=== PATIENT | female | born 1965 | race Caucasian/White ===

== ENCOUNTER → 2018-12-24 | Outpatient (CLI) | payer BC ==
--- NOTE | 2018-12-24 09:25 | XR ---
EXAMINATION TYPE: XR lumbar spine 2 or 3V DATE OF EXAM: 12/24/2018 CLINICAL HISTORY: Chronic low back pain. Myalgia. Generalized muscle weakness. TECHNIQUE: Frontal and lateral images of the lumbar spine are obtained. COMPARISON: None. FINDINGS: There are 5 lumbar type vertebral bodies identified. The lumbar spine shows slight scolio tic curvature without evidence of acute fracture or dislocation. Vertebral body heights and disk spac e heights are within normal limits. Numerous clips and sutures epigastric region are noted. IMPRESSION: As above.
== END | disposition home or self-care (01) ==
LOC: RADXRYALE 09:10
PROVIDERS: ATTEND Family Medicine
DX: M41.86 Other forms of scoliosis, lumbar region (principal); M79.18 Myalgia, other site
CPT/HCPCS: 72100

== ENCOUNTER → 2019-03-07 | Day surgery (SDC) | payer BC ==
[2019-03-05 12:18] VITALS: BMI 37.9
[~2019-03-07] MED LIST: LACTATED RINGERS 1,000 ML IV SCH; LIDOCAINE 1% 20 ML VIAL (10MG/ML) FOR IV START INTRADERMA PRN; LIDOCAINE 1% INJ 10MG/ML (20 ML MDV) ONE; MIDAZOLAM 2 MG/2 ML VIAL ONE; ONDANSETRON 4 MG/2 ML VIAL IVP ONE; PROPOFOL 10 MG/ML 20 ML VIAL IV ONE
[2019-03-07 07:44] VITALS: TEMP 98.1
--- NOTE | 2019-03-07 08:31 | P.PCN ---
Date of Procedure: 03/07/19 Procedure(s) Performed: BRIEF HISTORY: Patient is a 53-year-old pleasant female, scheduled for an elective colonoscopy as a part of screening for colorectal neoplasia. PROCEDURE PERFORMED: Colonoscopy with snare polypectomy. PREOPERATIVE DIAGNOSIS: Screening for colon cancer. IV sedation per Anesthesia. PROCEDURE: After informed consent was obtained, the patient, was brought into the endoscopy unit. IV sedation was administered by Anesthesia under continuous monitoring. Digital rectal examination was normal. Initially the Olympus CF-160 flexible video colonoscope was then inserted in the rectum, gradually advanced into the cecum without any difficulty. Careful examination was performed as the scope was gradually being withdrawn. Ileocecal valve and the appendiceal orifice were visualized and appeared normal. Prep was excellent. Mucosa of the cecum, ascending colon, transverse colon, descending colon, sigmoid colon, and rectum appeared normal. There was a 1 cm broad-based a sigmoid polyp that was removed by snare polypectomy. Retroflexion was performed in the rectum and no lesions were seen. The patient tolerated the procedure well. IMPRESSION: 1 cm broad-based rectosigmoid polyp status post polypectomy Rest of the colon appeared normal. RECOMMENDATIONS: Findings of this examination were discussed with the patient as well as a family. She was advised to follow with the biopsy results. If the biopsy shows an adenoma she can have a repeat colonoscopy in 3 years..
[2019-03-07 08:33] VITALS: BP 89/56; RESP 17
[2019-03-07 08:37] VITALS: PULSE 62
== END | disposition home or self-care (01) ==
LOC: ORWHC2ENDO 07:22
PROVIDERS: ATTEND Internal Medicine Gastroenterology
DX: Z12.11 Encounter for screening for malignant neoplasm of colon (principal); D12.7 Benign neoplasm of rectosigmoid junction; E07.9 Disorder of thyroid, unspecified; F41.9 Anxiety disorder, unspecified; F32.9 Major depressive disorder, single episode, unspecified; F90.9 Attention-deficit hyperactivity disorder, unspecified type; Z79.890 Hormone replacement therapy; Z79.2 Long term (current) use of antibiotics; Z79.891 Long term (current) use of opiate analgesic; Z79.899 Other long term (current) drug therapy; Z79.82 Long term (current) use of aspirin; Z98.84 Bariatric surgery status
CPT/HCPCS: 88305; 45385; J2250; J2405; J2001; J2704

== ENCOUNTER → 2019-05-26 | Outpatient (CLI) | payer BC ==
--- NOTE | 2019-05-26 12:03 | XR ---
EXAMINATION TYPE: XR chest 2V DATE OF EXAM: 05/26/2019 COMPARISON: NONE HISTORY: Shortness of breath TECHNIQUE: Frontal and lateral views of the chest are obtained. FINDINGS: Scattered senescent parenchymal changes noted. No evidence for infiltrate. No evidence for atelectasis. Heart size is stable. Mediastinal structures are stable and grossly unremarkable. No evidence for hilar prominence. Degenerative changes dorsal spine. IMPRESSION: 1. No evidence for acute pulmonary disease.
== END | disposition home or self-care (01) ==
LOC: RADXRYALE 11:47
PROVIDERS: ATTEND Family Medicine
DX: R06.02 Shortness of breath (principal)
CPT/HCPCS: 71046

== ENCOUNTER 2020-04-15 06:42 | Day surgery (SDC) | payer OTHER ==
[2020-04-09 16:29] VITALS: BMI 39.2
[~2020-04-15 06:42] MED LIST changes: +ALPRAZolam 0.25 MG TAB PO PRN; +ALPRAZolam 0.5 MG TAB PO PRN; -LACTATED RINGERS 1,000 ML IV SCH; -LIDOCAINE 1% 20 ML VIAL (10MG/ML) FOR IV START INTRADERMA PRN; -LIDOCAINE 1% INJ 10MG/ML (20 ML MDV) ONE; -MIDAZOLAM 2 MG/2 ML VIAL ONE; +NITROGLYCERIN SL TABS 0.4 MG TAB SUBLINGUAL PRN; -ONDANSETRON 4 MG/2 ML VIAL IVP ONE; -PROPOFOL 10 MG/ML 20 ML VIAL IV ONE; +SODIUM CHLORIDE 0.9% 1,000 ML in EMPTY BAG 1 BAG IV ONE
[2020-04-15] MEDS ORDERED: SODIUM CHLORIDE 0.9% 1,000 ML IV ONE (06:58)
[2020-04-15] MEDS ORDERED: ATORVASTATIN 80 MG TAB PO ONE (07:00)
[2020-04-15] MEDS ORDERED: ASPIRIN 325 MG TAB PO ONE (07:00)
[2020-04-15 07:21] VITALS: RESP 16; TEMP 98.1
[2020-04-15] MEDS ORDERED: MIDAZOLAM 2 MG/2 ML VIAL IV ONE (07:32)
[2020-04-15] MEDS ORDERED: fentaNYL (PF) 50 MCG/ML 2 ML AMP IV ONE (07:32)
[2020-04-15] MEDS ORDERED: LIDOCAINE 1% INJ 10MG/ML (20 ML MDV) ONE (07:32)
[2020-04-15] MEDS ORDERED: fentaNYL (PF) 50 MCG/ML 2 ML AMP ONE (07:33)
[2020-04-15] MEDS ORDERED: LIDOCAINE 1% INJ 10MG/ML (20 ML MDV) SQ ONE (07:38)
[2020-04-15] MEDS ORDERED: IOPAMIDOL-370 125ML BTL INJ ONE (07:47)
[2020-04-15] MEDS ORDERED: RX INFO: IV CONTRAST WAS GIVEN 1 EACH MISC MISCELLANE PRN (07:55)
[2020-04-15] MEDS ORDERED: SODIUM CHLORIDE 0.9% 1,000 ML IV SCH (08:00)
--- NOTE | 2020-04-15 16:03 | CC ---
CARDIAC CATHETERIZATION REPORT INDICATION: Chest pain and shortness of breath, exertional fatigue with abnormal stress test. PROCEDURE NOTE: After obtaining informed consent, left heart catheterization and coronary angiogram were performed via the right femoral artery using standard Wade catheters. The patient tolerated the procedure well without any obvious immediate complication. Femoral angiogram was performed and Angio-Seal was deployed for hemostasis. The patient received moderate conscious sedation. Total sedation time was 13 minutes. FINDINGS: HEMODYNAMICS: Left ventricular end-diastolic pressure is 18 mm. There is no significant gradient across the aortic valve. LEFT VENTRICULOGRAM: Left ventriculogram was not performed. ANGIOGRAPHIC DATA LEFT MAIN CORONARY ARTERY: Left main coronary artery is a normal-sized vessel and is free of stenosis. It divides into left anterior descending coronary artery and circumflex coronary artery. LAD and its branches, circumflex coronary artery and its branches are free of significant stenosis. RIGHT CORONARY ARTERY: Right coronary artery is a dominant vessel that is free of significant stenosis. CONCLUSIONS: 1. Normal coronary arteries. 2. Normal left ventricular end-diastolic pressure. PLAN: I reviewed angiographic data with the patient and told her that her chest discomfort could be related to small vessel disease and her management is going to be in the form of medical therapy. I told her that her stress test was probably a false positive stress test. MMODL / IJN: [id number] /
--- NOTE | 2020-04-15 16:12 | LTR ---
April 15, 2020 To: Dr. Wilfredo Hernandez Re: Melly Queen (63) Dear Wilfredo, I performed cardiac catheterization on Melly Queen. A detailed catheterization report will be forwarded to you for your records. In brief, her cardiac catheterization revealed normal coronary arteries. I believe her chest discomfort could be due to small vessel disease, and we will manage her with risk factor modification and aggressive medical therapy. Thank you for giving me the privilege to participate in the care of this pleasant lady. Sincerely, Chaz Weinstein M.D. DIVYA / ANGELES: [id number] /
[2020-04-15 17:18] VITALS: BP 106/56; PULSE 65
== END 2020-04-15 13:40 | disposition home or self-care (01) ==
LOC: CATHCVL 06:42
PROVIDERS: ATTEND Internal Medicine Cardiovascular Disease
DX: R94.39 Abnormal result of other cardiovascular function study (principal); R07.89 Other chest pain; R06.02 Shortness of breath; R53.83 Other fatigue
CPT/HCPCS: 93458; 81025; C1769 ×2; C1760; C1894; J2250; J2001; J3010; Q9967

== ENCOUNTER → 2021-03-01 | Outpatient (CLI) | payer OTHER ==
--- NOTE | 2021-03-01 15:41 | XR ---
EXAMINATION TYPE: XR cervical spine comp DATE OF EXAM: 03/01/2021 TECHNIQUE: Frontal, lateral, oblique, swimmers, and open mouth view of the cervical spine are obtaine d. HISTORY: [id number] CERVICALGIA,THOR PAIN,HEAD INJ COMPARISON: None FINDINGS: The cervical spine is visualized in its entirety from C1 thru the top of T1 level, slight grade 1 retrolisthesis C3 on C4 is present . The pre-vertebral soft tissue appears within normal coelho its. The C1-C2 articulation is within normal limits on the open mouth view. Vertebral body heights are maintained. Mild to moderate disc space narrowing with moderate anterior spurring at C6-C7 level. The oblique images are within normal limits. Overlying soft tissue is unremarkable. IMPRESSION: As above.
--- NOTE | 2021-03-01 15:42 | XR ---
EXAMINATION TYPE: XR thoracic spine complete DATE OF EXAM: 03/01/2021 CLINICAL HISTORY: Injury yesterday with pain TECHNIQUE: Frontal, lateral, and swimmer's view of thoracic spine are obtained. COMPARISON: None. FINDINGS: Thoracic spine show satisfactory alignment without evidence of acute fracture or dislocatio n. Vertebral body heights and disc space heights are preserved. Mild to moderate multilevel anterior spurring in the midthoracic spine. Surgical sutures and clips epigastric region likely from prior ga stric bypass surgery are noted. Visualized ribs are intact. IMPRESSION: As above.
== END | disposition home or self-care (01) ==
LOC: RADXRYALE 15:11
PROVIDERS: ATTEND Family Medicine
DX: M48.02 Spinal stenosis, cervical region (principal); M54.6 Pain in thoracic spine
CPT/HCPCS: 72050; 72072

== ENCOUNTER → 2023-04-16 | Outpatient (CLI) | payer MEDICARE ==
--- NOTE | 2023-04-23 08:41 | MM ---
Reason for Exam: Screening (asymptomatic). Last mammogram was performed 4 year(s) and 4 month(s) ago. Patient History: Menarche at age 14. First Full-Term at age 19. Postmenopausal. Paternal aunt had breast cancer, age 30. Maternal aunt had breast cancer, age 54. Sister had breast cancer, age 42. Risk Values: Janina 5 year model risk: 2.3%. NCI Lifetime model risk: 13.0%. Prior Study Comparison: 01/08/2019 Bilateral Screening Mammogram, [facility]. Tissue Density: There are scattered fibroglandular densities. Findings: Analyzed By CAD. There is no suspicious group of microcalcifications or new suspicious mass. Benign-appearing calcifications bilaterally. Overall Assessment: Benign, BI-RAD 2 Management: Screening Mammogram of both breasts in [address] [facility] will attempt to contact patient to return for supplemental views and ultrasound if indicated. Patient should continue monthly self-breast exams. A clinical breast exam by your physician is recommended on an annual basis. This exam should not preclude additional follow-up of suspicious palpable abnormalities. Note on Janina scores and lifetime risk: 1. A Janina score greater than 3% is considered moderate risk. If this is the case, consider specialist referral to assess eligibility for a risk reducing agent. 2. If overall lifetime risk for the development of breast cancer is 20% or higher, the patient may qualify for future screening with alternating mammogram and breast MRI. Electronically signed and approved by: Stanley Hansen DO
== END | disposition home or self-care (01) ==
LOC: RADMAMWWP 13:05
PROVIDERS: ATTEND Family Medicine
DX: Z12.31 Encounter for screening mammogram for malignant neoplasm of breast (principal); Z78.0 Asymptomatic menopausal state; Z80.3 Family history of malignant neoplasm of breast
CPT/HCPCS: 77063; 77067

== ENCOUNTER → 2023-05-28 | Outpatient (CLI) | payer MEDICARE ==
--- NOTE | 2023-05-28 09:50 | XR ---
EXAMINATION TYPE: XR chest 2V DATE OF EXAM: 05/28/2023 9:34 AM COMPARISON: Chest radiographs from 05/26/2019 TECHNIQUE: XR chest 2V Frontal and lateral views of the chest. CLINICAL INDICATION:Female, 57 years old with history of [id number],[id number] COUGH,SOB; FINDINGS: Lungs/Pleura: There is no evidence of pleural effusion, focal consolidation, or pneumothorax. Pulmonary vascularity: Unremarkable. Heart/mediastinum: Cardiomediastinal silhouette is unremarkable. Musculoskeletal: No acute osseous pathology. IMPRESSION: No acute cardiopulmonary disease/process. No significant change from prior exam.
== END | disposition home or self-care (01) ==
LOC: RADXRYALE 09:16
PROVIDERS: ATTEND Physician Assistant
DX: R05.9 Cough, unspecified (principal); R06.02 Shortness of breath
CPT/HCPCS: 71046

== ENCOUNTER → 2023-12-17 | Outpatient (CLI) | payer MEDICARE ==
--- NOTE | 2023-12-17 09:54 | XR ---
EXAMINATION TYPE: XR lumbosacral spine 5V, XR Hip Bilateral 2 views Complete DATE OF EXAM: 12/17/2023 Comparison: None Clinical History: 58-year-old female [id number] DEB HIP PAIN, LBP Findings: Lumbar spine: Hypertrophic facet arthropathy mid to lower lumbar spine. Slight accentuated lower lumbar lordosis. D egenerative grade 1 anterolisthesis L4-L5. Degenerative grade 1 retrolisthesis L2-L3. Remaining align ment is maintained. Vertebral body heights are preserved. Disc interspaces also relatively maintained . No pars interarticularis defect is seen on the oblique views. Hips: Hip joint spaces maintained on either side. Pubic symphysis and bilateral SI joints appear intact. No acute fracture, subluxation, or dislocation. Impression: 1. Lumbar spine: Hypertrophic facet arthropathy especially mid to lower lumbar spine. Degenerative gr maude 1 spondylolisthesis L2-L3 and L4-L5. No vertebral compression collapse. 2. Hips: No acute osseous abnormality seen.
== END | disposition home or self-care (01) ==
LOC: RADXRYALE 09:06
PROVIDERS: ATTEND Family Medicine
DX: M47.816 Spondylosis without myelopathy or radiculopathy, lumbar region (principal); M43.16 Spondylolisthesis, lumbar region; M25.551 Pain in right hip; M25.552 Pain in left hip
CPT/HCPCS: 72110; 73521

== ENCOUNTER → 2024-01-09 | Outpatient (CLI) | payer MEDICARE ==
--- NOTE | 2024-01-09 19:20 | MR ---
EXAMINATION TYPE: MR lumbar spine wo con DATE OF EXAM: 01/09/2024 COMPARISON: None HISTORY: Low back pain that radiates down legs. TECHNIQUE: Multiplanar, multisequence images of the lumbar spine were acquired without IV contrast. Findings: The lumbar vertebral segments are normal in height and alignment and there is no fracture or subluxat ion The disc spaces are well-maintained in height and there is no significant degeneration. There is no l umbar disc herniation. There is moderate facet arthropathy at the L3-4, L4-5 and L5-S1 levels. In combination with moderate facet arthropathy and moderate thickening of the ligamentum flavum, ther e is mild lumbar canal stenosis at the L4-5 level. There is no neural foraminal stenosis on the right. Secondary to thickening of the ligamentum flavum and facet hypertrophy, there is mild spinal stenosis at the L4-5 and possibly L5-S1 level. The paraspinal soft tissues are unremarkable. IMPRESSION: 1. No lumbar disc herniation. 2. Moderate facet arthropathy from L3 through S1. 3. Mild spinal stenosis at the L4-5 level. 4. Mild neural foraminal stenosis at the L4-5 and L5-S1 levels on the left.
== END | disposition home or self-care (01) ==
LOC: RADMRIMAIN 16:03
PROVIDERS: ATTEND Family Medicine
DX: M47.816 Spondylosis without myelopathy or radiculopathy, lumbar region (principal); M99.73 Connective tissue and disc stenosis of intervertebral foramina of lumbar region
CPT/HCPCS: 72148

== ENCOUNTER → 2024-04-03 | Outpatient (CLI) | payer MEDICARE ==
--- NOTE | 2024-04-03 17:35 | XR ---
EXAMINATION TYPE: XR abdomen 1V DATE OF EXAM: 04/03/2024 COMPARISON: None INDICATION: Hematuria flank pain TECHNIQUE: Single view abdomen FINDINGS: There is normal colonic bowel gas. Some nonspecific small bowel gas in the left mid abdomen. Psoas margins are normal No organomegaly is present. There is a 0.4 cm area of increased density at the left L2-3 level. Ureteral stone is not excluded. C ouple of phleboliths. Review within the left hemipelvis. Distal ureteral stones are considered less l ikely. IMPRESSION: 1. There may be a 0.4 cm proximal left ureteral stone. 2. Small focal ileus left mid abdomen [facility], , 04/03/2024 5:32 PM
== END | disposition home or self-care (01) ==
LOC: RADXRYALE 16:16
PROVIDERS: ATTEND Physician Assistant
DX: N30.01 Acute cystitis with hematuria (principal); K56.7 Ileus, unspecified; M54.50 Low back pain, unspecified
CPT/HCPCS: 74018

== ENCOUNTER → 2024-04-18 | Outpatient (CLI) | payer MEDICARE ==
--- NOTE | 2024-04-18 14:20 | MM ---
Reason for Exam: Screening (asymptomatic). Last screening mammogram was performed 12 month(s) ago. Patient History: Menarche at age 14. First Full-Term at age 19. Postmenopausal. Patient has history of breast feeding. Paternal aunt had breast cancer, age 30. Maternal aunt had breast cancer, age 54. Sister had breast cancer, age 42. Risk Values: Janina 5 year model risk: 2.4%. NCI Lifetime model risk: 12.7%. Prior Study Comparison: 01/08/2019 Bilateral Screening Mammogram, [facility]. 04/16/2023 Bilateral MG 3D screening mammo w/cad, [facility]. Tissue Density: There are scattered areas of fibroglandular density. Findings: Analyzed By CAD. There is no suspicious group of microcalcifications or new suspicious mass in either breast. Overall Assessment: Benign, BI-RAD 2 Management: Screening Mammogram of both breasts in 1 year. . Patient should continue monthly self-breast exams. A clinical breast exam by your physician is recommended on an annual basis. This exam should not preclude additional follow-up of suspicious palpable abnormalities. Note on Janina scores and lifetime risk: 1. A Janina score greater than 3% is considered moderate risk. If this is the case, consider specialist referral to assess eligibility for a risk reducing agent. 2. If overall lifetime risk for the development of breast cancer is 20% or higher, the patient may qualify for future screening with alternating mammogram and breast MRI. [facility], , 04/18/2024 2:17 PM. Electronically signed and approved by: Yannick Melendez M.D. Radiologis
== END | disposition home or self-care (01) ==
LOC: RADMAMWWP 09:05
PROVIDERS: ATTEND Family Medicine
DX: Z12.31 Encounter for screening mammogram for malignant neoplasm of breast
CPT/HCPCS: 77063; 77067

== ENCOUNTER → 2024-05-23 | Outpatient (CLI) | payer MEDICARE ==
--- NOTE | 2024-05-24 20:10 | US ---
EXAMINATION TYPE: US kidneys/renal and bladder DATE OF EXAM: 05/23/2024 COMPARISON: NONE CLINICAL INDICATION: Female, 58 years old with history of N21.0 CALCULUS OF BLADDER; Patient states d ealing with kidney stones for 2 months; Gross hematuria TECHNIQUE: Grayscale imaging of the bilateral kidneys and urinary bladder: FINDINGS: EXAM MEASUREMENTS: Right Kidney: 10.3 x 5.5 x 5.6 cm Left Kidney: 10.1 x 5.0 x 5.3 cm Post Void Residual Volume: NA mL Right Kidney: Multiple echogenic foci seen throughout with posterior shadowing Left Kidney: ? no evidence of stones Bladder: wnl Bilateral Jets seen: Yes Normal Post Void Residual: NA There is no evidence for hydronephrosis at this point in time. No masses are identified. The urinar y bladder is anechoic. IMPRESSION: Nonobstructing right-sided nephrolithiasis. [facility], , 05/24/2024 8:08 PM
== END | disposition home or self-care (01) ==
LOC: RADUSWWP 16:03
PROVIDERS: ATTEND Family Medicine
DX: N21.0 Calculus in bladder (principal); N20.0 Calculus of kidney
CPT/HCPCS: 76770